=== PATIENT | male | born 1995 | race Native Hawaiian/Other Pacific Islander ===

== ENCOUNTER 2018-08-11 11:47 | Emergency (ER) | payer OTHER ==
[2018-08-11 11:58] VITALS: BMI 25.0
[2018-08-11 12:00] VITALS: BP 137/68; PULSE 95; RESP 18; TEMP 98.9; O2SAT 99
[2018-08-11] MEDS ORDERED: Tdap Vaccine 0.5 ml Vial (10-64 yrs) IM ONE ×2 (12:29→12:52)
[2018-08-11] MEDS ORDERED: Amoxicillin-Clav 875-125 mg Tab PO STA (12:29)
--- NOTE | 2018-08-11 12:49 | C.PDOC ---
History Of Present Illness 23 y/o male presents to the ER for evaluation of cat bite and scratch to the left hand which has been present since yesterday. Patient states that he was a petting a stray cat while he was at work.Patient reports that cat was initially friendly and then bit and scratched him on the hand. He notes that the cat appeared well. Denies having puncture wound, fever,chills, nausea, and vomiting. Time Seen by Provider: 08/11/18 12:13 Chief Complaint (Nursing): Abnormal Skin Integrity History Per: Patient History/Exam Limitations: no limitations Onset/Duration Of Symptoms: Days Current Symptoms Are (Timing): Still Present Severity: Moderate Past Medical History Reviewed: Historical Data, Nursing Documentation, Vital Signs Vital Signs: Last Vital Signs Temp 98.9 F 08/11/18 11:58 Pulse 95 H 08/11/18 11:58 Resp 18 08/11/18 11:58 BP 137/68 08/11/18 11:58 Pulse Ox 99 08/11/18 11:58 - Medical History PMH: No Chronic Diseases Surgical History: No Surg Hx Family History: States: No Known Family Hx - Social History Hx Alcohol Use: Yes Hx Substance Use: No - Immunization History Hx Tetanus Toxoid Vaccination: No Hx Influenza Vaccination: No Hx Pneumococcal Vaccination: No Review Of Systems Except As Marked, All Systems Reviewed And Found Negative. Constitutional: Negative for: Fever, Chills Gastrointestinal: Negative for: Nausea, Vomiting Skin: Positive for: Other (cat bite and scratch to left hand) Physical Exam - Physical Exam Appears: Non-toxic, No Acute Distress Skin: Normal Color, Warm, Dry, Other (shallow cat scratch russell around thumbs of bilateral hands, no puncture wound, no bleeding) Head: Atraumatic, Normacephalic Eye(s): bilateral: Normal Inspection Nose: Normal Oral Mucosa: Moist Neck: Supple Chest: Symmetrical Neurological/Psych: Oriented x3, Normal Speech ED Course And Treatment O2 Sat by Pulse Oximetry: 99 (RA) Pulse Ox Interpretation: Normal Medical Decision Making Medical Decision Making: Plan: --Tetanus Vaccination --Augmentin PO Updates: There is no indication for rabies vaccination as patient stated that the cat was well-appearing. Patient has been discharged with prescription for Augmentin. Disposition Counseled Patient/Family Regarding: Diagnosis, Need For Followup, Rx Given - Disposition Disposition: HOME/ ROUTINE Disposition Time: 12:46 Condition: STABLE Prescriptions: Amoxicillin/Clavulanate [Augmentin 875 MG-125 MG] 1 tab PO BID #24 tab Instructions: Animal Bites (DC) Forms: General Discharge Instructions, [facility] (E[place]) - POA Present On Arrival: None - Clinical Impression Clinical Impression: Cat bite of hand - Scribe Statement The provider has reviewed the documentation as recorded by the Prince Biggs Provider Attestation: All medical record entries made by the Prince were at my direction and personally dictated by me. I have reviewed the chart and agree that the record accurately reflects my personal performance of the history, physical exam, medical decision making, and the department course for this patient. I have also personally directed, reviewed, and agree with the discharge instructions and disposition.
[2018-08-11] MEDS ORDERED: Amoxicillin-Clav 875-125 mg Tab PO ONE (12:52)
== END 2018-08-11 13:02 | disposition home or self-care (01) ==
LOC: C.ER 11:47
DX: S61.452A Open bite of left hand, initial encounter (principal); W55.01XA Bitten by cat, initial encounter; Z23 Encounter for immunization